=== PATIENT | male | born 1995 | race Two or more races ===

== ENCOUNTER 2023-07-01 12:35 | Emergency (ER) | payer BC, OTHER ==
[~2023-07-01] VITALS: Ht 165.1 cm; Wt 65.9 kg
[2023-07-01 13:33] VITALS: BP 114/62; PULSE 69; RESP 18; TEMP 99.2; O2SAT 97
[2023-07-01] MEDS ORDERED: IBUP-1456 PO (14:16)
== END 2023-07-01 14:19 | disposition home or self-care (01) ==
LOC: ER 12:35
DX: S93.401A Sprain of unspecified ligament of right ankle, initial encounter (principal); X50.1XXA Overexertion from prolonged static or awkward postures, initial encounter; Y93.89 Activity, other specified; Y92.89 Other specified places as the place of occurrence of the external cause; Y99.8 Other external cause status
CPT/HCPCS: 73610